=== PATIENT | male | born 1990 | race Caucasian/White ===

== ENCOUNTER 2019-05-29 06:47 | Emergency (ER) | payer SELFPAY ==
[~2019-05-29] VITALS: Ht 167.6 cm; Wt 79.4 kg
[2019-05-29 07:01] VITALS: Ht 167.6 cm; Wt 79.4 kg
[2019-05-29 08:11] VITALS: BP 128/76
== END 2019-05-29 08:11 | disposition home or self-care (01) ==
LOC: ED 06:47
DX: S20.219A Contusion of unspecified front wall of thorax, initial encounter (principal); V49.9XXA Car occupant (driver) (passenger) injured in unspecified traffic accident, initial encounter; Y93.I9 Activity, other involving external motion; Y92.413 State road as the place of occurrence of the external cause; Y99.8 Other external cause status
CPT/HCPCS: Q0092